=== PATIENT | male | born 1945 | race Caucasian/White ===

== ENCOUNTER → 2018-05-01 | Outpatient (REF) | payer MEDICARE, OTHER ==
[~2018-05-01] MED LIST: ASPIRIN325 MG PO; LIPITOR10 MG PO; LISINOPRIL20 MG PO; LORTAB 1010 MG PO
[2018-05-01 10:14] LABS: HEMATOCRIT 46.3 % (39.0-50.0); HEMOGLOBIN 15.2 g/dl (14.0-18.0); IMMATURE GRANULOCYTES 0.7 % (0.0-5.0); MEAN CELL VOLUME 91.5 fL CALC (80.0-100.0); MEAN CORPUSCULAR HGB CONC 32.8 g/L CALC (32.0-36.0); NEUT# 6.78 thou/uL (1.82-7.42); RED BLOOD COUNT 5.06 mill/uL (4.70-6.10)
[2018-05-01 10:17] LABS: ALBUMIN 4.1 g/dL (3.2-5.0); ALKALINE PHOSPHATASE 96 u/l (38-126); ANION GAP 12 (6-22 (CALC)); BILIRUBIN, TOTAL 0.5 mg/dL (0.0-1.4); BUN 19 mg/dL (8-23); BUN/CREATININE RATIO 19 (12-20 (CALC)); CALCULATED LDLCHOLESTEROL 59 mg/dL (62-129 (CALC)); CARBON DIOXIDE 30 mmol/l (22-30); CHLORIDE 100 mmol/l (95-108); CHOLESTEROL HDL RATIO 3.9 (<4.4 (CALC)); GFR > 60 ML/MIN (>=60 (CALC)); GFR FOR AFR.AMER. > 60 ML/MIN (>=60 (CALC)); HDL CHOLESTEROL 36 mg/dL (>=40); SGOT/AST 19 u/l (19-48); SODIUM 137 mmol/l (137-146); TOTAL CHOLESTEROL 139 mg/dl (0-199); TOTAL PROTEIN 7.1 g/dL (6.3-8.2); TRIGLYCERIDES REFLEX TO dLDL 226 mg/dl (30-149); VLDL CHOLESTROL 45 mg/dl (0-38 (CALC))
[2018-05-01 10:50] LABS: TSH, 3RD GENERATION 1.22 uIU/mL (0.47 - 4.68)
== END | disposition home or self-care (01) ==
LOC: LAB 09:19
PROVIDERS: ATTEND Internal Medicine
DX: E78.2 Mixed hyperlipidemia (principal); E11.9 Type 2 diabetes mellitus without complications; Z79.899 Other long term (current) drug therapy; Z12.5 Encounter for screening for malignant neoplasm of prostate

== ENCOUNTER 2022-02-04 06:34 | Inpatient (IN) | payer MEDICARE, OTHER ==
[2022-02-04] VITALS (37 sets, daily range): BP systolic 138–218; BP diastolic 52–103
[~2022-02-04] VITALS: Ht 182.9 cm; Wt 100.0 kg
--- NOTE | 2022-02-04 06:40 | NUR ---
PT TO ROOM 2 FOR TRIAGE ACCOMPANIED BY .
--- NOTE | 2022-02-04 06:47 | NUR ---
PT TO CT SCAN.
[2022-02-04 07:08] LABS: HEMATOCRIT 41.5 % (39.0-50.0); HEMOGLOBIN 13.6 g/dl (14.0-18.0); IMMATURE GRANULOCYTES 0.3 % (0.0-5.0); MEAN CELL VOLUME 90.8 fL CALC (80.0-100.0); MEAN CORPUSCULAR HGB 29.8 pG CALC (26.0-32.0); MEAN CORPUSCULAR HGB CONC 32.8 g/dL CAL (32.0-36.0); NEUT# 8.35 thou/uL (1.82-7.42); RED BLOOD COUNT 4.57 mill/uL (4.70-6.10); RED CELL DISTRI WIDTH 12.7 % (11.5-15.5)
--- NOTE | 2022-02-04 07:21 | NUR ---
STROKE ALERT ACTIVATED AT 0646. PT TO CT, TELE NEUROLOGIST DR. JARA ASSESSING PT.
[2022-02-04 07:33] LABS: ALBUMIN 4.3 g/dL (3.2-5.0); ALKALINE PHOSPHATASE 115 u/l (38-126); ANION GAP 17 (6-22 (CALC)); BILIRUBIN, TOTAL 0.4 mg/dL (0.0-1.4); BUN 20 mg/dL (8-23); BUN/CREATININE RATIO 23 (12-20 (CALC)); CARBON DIOXIDE 26 mmol/l (22-30); CHLORIDE 97 mmol/l (95-108); CREATININE 0.9 mg/dL (0.7-1.3); GFR FOR AFR.AMER. > 60 ML/MIN (>=60 (CALC)); GFR OTHER RACES > 60 ML/MIN (>=60 (CALC)); POTASSIUM 4.8 mmol/l (3.5-5.1); SGOT/AST 26 u/l (19-48); SODIUM 136 mmol/l (137-146); TOTAL PROTEIN 7.3 g/dL (6.3-8.2)
[2022-02-04 07:45] LABS: PROTHROMBIN TIME 9.6 SECONDS (9.0-12.5)
[2022-02-04 08:08] LABS: URINE BILIRUBIN - DIPSTICK NEGATIVE (NEGATIVE); URINE BLOOD DIPSTICK NEGATIVE (NEGATIVE); URINE COLOR YELLOW; URINE GLUCOSE - DIPSTICK 100 mg/dL (NEGATIVE); URINE KETONE NEGATIVE (NEGATIVE); URINE LEUK ESTERASE NEGATIVE (NEGATIVE); URINE PROTEIN - DIPSTICK NEGATIVE (NEG-TRACE); URINE UROBILINOGEN - DIPSTICK 0.2 E.U./dL (0.2)
[2022-02-04 08:09] LABS: URINE NITRITE - DIPSTICK NEGATIVE (Negative)
--- NOTE | 2022-02-04 08:22 | NUR ---
PT IN ROOM RESTING WITH EYES OPEN. DYSPHAGIA SCREENING DONE AND PT HAD NO DIFFICULTY SWALLOWING. PT USED A URINAL TO URINATE. PT ABLE TO MOVE AND SIT UP WITH NO ISSUES. PT HAS NO COMPLAINT.
--- NOTE | 2022-02-04 08:51 | NUR ---
PT ADMITTED TO ICU 7. BEDSIDE REPORT GIVEN. NAD
--- NOTE | 2022-02-04 09:00 | NUR ---
PT ARRIVES TO ROOM 7 IN ICU, DIAGNOSED CVA. PT IS ALERT, LOOKING AROUND, BUT SLOW TO ANSWER QUESTIONS, MANY INCORRECT. PHYSICALLY HE IS ABLE TO BEAR HIS WEIGHT, MOVE HIS ARMS AND LEGS APPROPRIATELY, TOUCH FINGERS TO NOSE.
[2022-02-04] MEDS ORDERED: METFORMIN500 M2 PO (11:09)
[2022-02-04] MEDS ORDERED: LOPRESSOR25 M1 PO (11:10)
--- NOTE | 2022-02-04 12:37 | NUR ---
PT'S IS AT BEDSIDE, HELPFUL IN ADMISSION QUESTIONS. PT REMAINS SLOW TO SPEAK, IS AWARE OF HIS CHANGE IN STATUS, SEEN FRUSTRATED WHEN HE KNOWS HE IS GIVING WRONG ANSWER.
--- NOTE | 2022-02-04 17:41 | NUR ---
PT CONTINUES WITH DIFFICULTY FINDING WORDS, NOT IMPROVED DURING THE DAY. PT EARLIER REFUSED MRI SAYING THAT IT MADE HIM SICK. PT REQUIRES ASSIST TO USE URINAL, CLUMSY WHEN HE TRIES TO HOLD BOTTLE HIMSELF.
--- NOTE | 2022-02-04 19:47 | NUR ---
PATIENT LAYING IN BED AT THIS TIME. LABORER TAN HOUSE DONE SEE INTERVENTIONS. PATIENT IS ALERT TO NAME PATIENT WHEN ASKED QUESTIONS IS MILDLY APHASIC AND CAN NOT SPEAK IN SENTENCES AT THIS TIME NIH SCORE IS A 3 AND MEND IS A 1 AT THIS TIME NEURO CHECKS DONE AND PATIENT CAN MOVE ALL EXTREMITIES WHEN ASKED AND NO DRIFTS NOTED PATIENT IS CONFUSED WHEN ASKED OF LOCATION. PATIENT GET SLIGHTLY AXNIXOUS DUE TO NOT BEING ABLE TO ARTICULATE WORDS AT THIS TIME. PATIENT CAN FOLLOW COMMANDS WHEN ASKED. PUPILS ARE REACTIVE AND EQUAL AT THIS TIME. LUNG FILEDS ARE CLEAR IN UPPER AND MIDDLE LOBES AND DIMINISHED IN LOWER LOBES. BOWEL SOUNDS ARE PRESENT IN ALL FOUR QUADRANTS AT THIS TIME. WHEN ASKED PATIENT DENIES PAIN. PATIENT REFUSING TO WEAR SCD'S AT THIS TIME. PATIENT IS CURRENTLY IN ISOLATION DUE TO POSITIVE LAB TEST OF COVID AND HAS AIRBORNNE PRECAUTIONS IN PLACE. PATIENT HAS NO SIGNS OF SHORTNESS OF BREATH ANS SPO2 ON ROOM AIR IS 93%. PATIENT FINANCIAL SECRETARY IS READING SINUS RHYTHM AND HR OF 83 WITH OCCASSIONAL PVC NOTED. CURRENTLY BP IS 161/73. SIDERAILS ARE UP CALL LIGHT IS WITHIN REACH WILL CONTINUE TO MONITOR.
--- NOTE | 2022-02-04 20:55 | NUR ---
CALLED DR. SALGADO FOR ORDERS FOR INCREASED BP. ORDERS GIVEN AND SENT TO PHARMACY AT THIS TIME. PATIENT ASSISTED TO STAND AND USE URINAL AT THIS TIME. 200 ML OF URINE NOTED CRESENCIO IN COLOR.
--- NOTE | 2022-02-04 22:00 | NUR ---
PATIENT RESTING IN BED AT THIS TIME. AROUSES EASILY WHEN SPOKEN TO. PATIENT REMAINS ASPHASIC AND CONVENIENCE STORE MANAGER READING AT THIS TIME. SINUS RHYTHM WITH IVCD/1 DEGREE AV BLOCK AND HR OF 75. SIDERAILS REMAIN UP X 2 CALL LIGHT REMAINS WITHIN REACH.
[2022-02-05] VITALS (24 sets, daily range): BP systolic 113–203; BP diastolic 54–84
--- NOTE | 2022-02-05 00:02 | NUR ---
PATIENT LAYING IN BED AT THIS TIME ON LEFT SIDE. WHEN ASKED PATIENT FOLLOWED ALL COMMANDS. NEURO CHECKS REMAIN UNCHANGED AT THIS TIME. PATIENT STILL REMAINS ASPHASIC AND CAN NOT COMPLETE SENTENCES AT THIS TIME. PATIENTS SPEECH IS CLEAR BUT PATIENT CANNOT ARTICULATE WORDS CORRECTLY AND GETS FRUSTRATED AT TIMES. PATIENT GRASPS ARE STRONG AND NO VISUAL OR SENSORY CHANGES NOTED. PHYS ASSISTANT CURRENTLY READING BP IS 171/71 HR IS 82 SPO2 IS 93% ON ROOM AIR AND SINUS RHYTHM WITH 1DEGREE BLOCK NOTED. SIDERAILS ARE UP CALL LIGHT IS WIHTIN REACH WILL CONTINUE TO MONITOR.
--- NOTE | 2022-02-05 02:03 | NUR ---
PATIENT RESTING IN BED AT THIS TIME WITH EYES CLOSED. RESPIRATIONS EASY AND UNLABORED AT THIS TIME. DRAWBENCH OPERATOR SHOWING SR AND 1DEGREE BLOCK AND HR OF 80. BP AT THIS TIME IS 178/66. PATIENT WILL CONTINUE TO BE MONITORED. SIDERAILS ARE UP X 2 CALL LIGHT WIHTIN REACH.
--- NOTE | 2022-02-05 04:08 | NUR ---
PATIENT AWAKEN AT THIS TIME FOR ASSESSMENT. PATIENT ALERT TO NAME, PATIENT NIH REMAINS A 3 AT THIS TIME. PATIETN REMAINS APHASIC AT THIS TIME. SPEECH IS CLEAR PATIENT UNABLE TO ANSWER QUESTIONS CORRECTLY. NEURO CHECKS REMAIN UNCHAGED AT THIS TIME FROM PREVOUS ASSESSMENT. BP AT THIS TIME SIS 155/63 SPO2 IS 91% ON ROOM AIR AND ROVING WINDER IS SINUS WITH 1 DEGREE BLOCK/ IVCD. PATIENT STOOD ON SIDE OF BED X 1 ASSIST AND BED LINEN WAS REMADE AND PATIENT RETURNED BACK TO BED. SIDERAILS ARE UP CALL LIGHT IS WITHIN REACH .
[2022-02-05 05:58] LABS: HEMATOCRIT 38.9 % (39.0-50.0); HEMOGLOBIN 12.7 g/dl (14.0-18.0); MEAN CELL VOLUME 89.4 fL CALC (80.0-100.0); MEAN CORPUSCULAR HGB 29.2 pG CALC (26.0-32.0); MEAN CORPUSCULAR HGB CONC 32.6 g/dL CAL (32.0-36.0); RED BLOOD COUNT 4.35 mill/uL (4.70-6.10); RED CELL DISTRI WIDTH 12.6 % (11.5-15.5)
--- NOTE | 2022-02-05 06:06 | NUR ---
PATIENT AWAKEN TO HAVE LABS DRAWN AT THIS TIME. NIH SCORE REMAINS A "3" AND IS UNCHANGED FROM PREVIOUS SCORES. CARD LACER JACQUARD IS READING SR AT 76 WITH A IVCD/ 1ST DEGREE BLOCK. PATIENTS BP AT THIS TIME IS CURRENTLY 147/56 SPO2 IS 91 ON ROOM AIR. SIDERAILS ARE UP CALL LIGHT IS WITHIN REACH.
[2022-02-05 06:26] LABS: ALKALINE PHOSPHATASE 98 u/l (38-126); ANION GAP 13 (6-22 (CALC)); BILIRUBIN, TOTAL 0.8 mg/dL (0.0-1.4); BUN 22 mg/dL (8-23); BUN/CREATININE RATIO 25 (12-20 (CALC)); CALCULATED LDLCHOLESTEROL 52 mg/dL (62-129 (CALC)); CARBON DIOXIDE 28 mmol/l (22-30); CHLORIDE 98 mmol/l (95-108); CHOLESTEROL HDL RATIO 3.8 (<4.4 (CALC)); CREATININE 0.9 mg/dL (0.7-1.3); GFR FOR AFR.AMER. > 60 ML/MIN (>=60 (CALC)); GFR OTHER RACES > 60 ML/MIN (>=60 (CALC)); HDL CHOLESTEROL 30 mg/dL (>=40); MAGNESIUM 1.8 mg/dL (1.6-2.3); POTASSIUM 4.1 mmol/l (3.5-5.1); SGOT/AST 24 u/l (19-48); SODIUM 135 mmol/l (137-146); TOTAL CHOLESTEROL 115 mg/dl (0-199); TOTAL PROTEIN 6.6 g/dL (6.3-8.2); TOTAL TRIGLYCERIDES 167 mg/dl (30-149); VLDL CHOLESTROL 33 mg/dl (0-38 (CALC))
--- NOTE | 2022-02-05 08:38 | NUR ---
Patient resting comfortably in bed. Arouses to speech, follows commands, expressive aphasia persists. Continuous monitoring in place. VSS. NAD. NIHSS = 2. at bedside at this time. Patient has refused breakfast, but she will attempt to get him to try something.
--- NOTE | 2022-02-05 10:42 | NUR ---
Patient lying in bed. remains in room. Agreeable to MRI with anxiety relief. NAD/VSS.
--- NOTE | 2022-02-05 11:24 | NUR ---
[id number] MELT HOUSE SUPERVISOR USED. Pt questioning medication that she was told was called into the pharmacy. Concerned that she has no one to pick them up. Explained she would recieve the necessary medications here and she wishes to discuss with MD tomorrow. No further concerns at this time. Line discontinued.
--- NOTE | 2022-02-05 12:45 | NUR ---
Preparing to transport patient to MRI. Ambulatory, speaking in full sentences but occasionally has difficulty finding the appropriate word. NIH = 1. Plan to D/C home following MRI results. VSKlaudia. SKY.
--- NOTE | 2022-02-05 14:16 | NUR ---
Patient anxiously awaiting discharge. Informed of plan to wait on results, he is agreeable, as is his . He has dressed himself without assistance and is requesting his IV be removed. NAD. ESCAMILLA.
[2022-02-05] MEDS ORDERED: PLAVIX75 MG PO (15:57)
[2022-02-05] MEDS ORDERED: ATORVASTATIN CA40 MG PO (15:58)
--- NOTE | 2022-02-05 16:15 | NUR ---
Patient discharged home in stable condition. AAO, ambulatory, offers no complaints. Discharge education reviewed and sent home with patient. Medications reviewed and patient states understanding. is driving patient home. Transported to car via wheelchair with all personal belongings.
== END 2022-02-05 16:15 | disposition home or self-care (01) | DRG 64 ==
LOC: ED 06:34 → ED-I 07:58 → ED 08:11 → ICU 08:12
PROVIDERS: Family Medicine; ADMIT Internal Medicine; ATTEND Internal Medicine
DX: I63.9 Cerebral infarction, unspecified (principal); U07.1 COVID-19; I67.4 Hypertensive encephalopathy; R47.01 Aphasia; R41.0 Disorientation, unspecified; R51.9 Headache, unspecified; R29.704 NIHSS score 4; I10 Essential (primary) hypertension; E11.51 Type 2 diabetes mellitus with diabetic peripheral angiopathy without gangrene; E78.5 Hyperlipidemia, unspecified; Z87.891 Personal history of nicotine dependence
CPT/HCPCS: J1650; J2060; Q9967

== ENCOUNTER 2023-10-19 06:36 | Emergency (ER) | payer MEDICARE, OTHER ==
[~2023-10-19] VITALS: Ht 182.9 cm; Wt 85.0 kg
[~2023-10-19 06:36] MED LIST changes: +AMLODIPINE BESY10 MG PO; +ATORVASTATIN CA40 MG PO; +JARDIANCE25 MG PO; +LOPRESSOR25 M1 PO; +METFORMIN500 M2 PO; +PLAVIX75 MG PO
[2023-10-19 06:42] VITALS: BP 135/73
[2023-10-19 07:00] VITALS: BP 144/74
[2023-10-19] MEDS ORDERED: [UNRECOGNIZED DRUG - OTHER] (07:14)
[2023-10-19] MEDS ORDERED: ALBUTEROL SUL0.083 % IN (07:14)
[2023-10-19] MEDS ORDERED: LEVETIRACETAM750 MG PO (07:15)
[2023-10-19] MEDS ORDERED: MULTI VIT PO (07:16)
[2023-10-19] MEDS ORDERED: COQ-1030 M1 PO (07:16)
[2023-10-19] MEDS ORDERED: PROTONIX40 M2 PO (07:17)
[2023-10-19 07:31] VITALS: BP 125/62
[2023-10-19 07:34] VITALS: BP 125/62
== END 2023-10-19 07:40 | disposition home or self-care (01) ==
LOC: ED 06:36
DX: S40.812A Abrasion of left upper arm, initial encounter (principal); T14.8XXA Other injury of unspecified body region, initial encounter; C34.90 Malignant neoplasm of unspecified part of unspecified bronchus or lung; C79.31 Secondary malignant neoplasm of brain; I10 Essential (primary) hypertension; I73.9 Peripheral vascular disease, unspecified; W18.39XA Other fall on same level, initial encounter; Y92.000 Kitchen of unspecified non-institutional (private) residence as the place of occurrence of the external cause; Z95.820 Peripheral vascular angioplasty status with implants and grafts; Z79.60 Long term (current) use of unspecified immunomodulators and immunosuppressants

== ENCOUNTER 2023-10-21 07:32 | Emergency (ER) | payer MEDICARE, OTHER ==
[~2023-10-21] VITALS: Ht 182.9 cm; Wt 86.1 kg
[2023-10-21] VITALS (27 sets, daily range): BP systolic 100–153; BP diastolic 48–86
[~2023-10-21 07:32] MED LIST changes: +ALBUTEROL SUL0.083 % IN; +COQ-1030 M1 PO; +LEVETIRACETAM750 MG PO; +MULTI VIT PO; +PROTONIX40 M2 PO; +[UNRECOGNIZED DRUG - OTHER]
[2023-10-21] MEDS ORDERED: ACETAMINOPHEN 325 MG/TAB PO ONE (08:00)
[2023-10-21] MEDS ORDERED: KETOROLAC TROMETHAMINE 15 MG/ML SDV IV ONE (08:00)
[2023-10-21 08:19] LABS: BASO% 0.1 % (0-3); EOS% 0.2 % (0-8); HEMATOCRIT 40.6 % (39.0-50.0); HEMOGLOBIN 12.7 g/dl (14.0-18.0); IMMATURE GRANULOCYTES 0.5 % (0.0-5.0); LYMPH% 13.4 % (15-41); MEAN CELL VOLUME 88.5 fL CALC (80.0-100.0); MEAN CORPUSCULAR HGB 27.7 pG CALC (26.0-32.0); MEAN CORPUSCULAR HGB CONC 31.3 g/dL CAL (32.0-36.0); MONO% 4.2 % (2-13); NEUT# 9.3 thou/uL (1.82-7.42); NEUT% 81.6 % (42-76); RED BLOOD COUNT 4.59 mill/uL (4.70-6.10); RED CELL DISTRI WIDTH 17.1 % (11.5-15.5)
[2023-10-21 08:37] LABS: ALBUMIN 4.4 g/dL (3.2-5.0); CREATININE 0.7 mg/dL (0.7-1.3); POTASSIUM 4.8 mmol/l (3.5-5.1); TOTAL PROTEIN 7.6 g/dL (6.3-8.2)
[2023-10-21 10:21] LABS: URINE BILIRUBIN - DIPSTICK Negative (NEGATIVE); URINE BLOOD DIPSTICK Negative (NEGATIVE); URINE GLUCOSE - DIPSTICK >=1000 mg/dL (NEGATIVE); URINE KETONE Trace mg/dL (NEGATIVE); URINE LEUK ESTERASE Negative (NEGATIVE); URINE NITRITE - DIPSTICK Negative (Negative); URINE PROTEIN - DIPSTICK 30 mg/dL (NEG-TRACE); URINE SPECIFIC GRAVITY 1.015; URINE UROBILINOGEN - DIPSTICK 0.2 E.U./dL (0.2)
[2023-10-21 10:33] LABS: URINE COLOR Yellow
[2023-10-21 10:34] LABS: URINE EPITHELIAL CELLS FEW EPI/hpf (0-FEW); URINE MUCUS FEW hpf (NONE-FEW)
== END 2023-10-21 14:28 | disposition home or self-care (01) ==
LOC: ED 07:32
PROVIDERS: Family Medicine
DX: R51.9 Headache, unspecified (principal); I10 Essential (primary) hypertension; E11.9 Type 2 diabetes mellitus without complications; C34.90 Malignant neoplasm of unspecified part of unspecified bronchus or lung; C79.31 Secondary malignant neoplasm of brain; I73.9 Peripheral vascular disease, unspecified; Z79.84 Long term (current) use of oral hypoglycemic drugs; Z20.822 Contact with and (suspected) exposure to COVID-19

== ENCOUNTER 2023-10-25 06:30 | Emergency (ER) | payer MEDICARE, OTHER ==
[~2023-10-25] VITALS: Ht 182.9 cm; Wt 86.1 kg
[2023-10-25] VITALS (14 sets, daily range): BP systolic 131–153; BP diastolic 67–91
[2023-10-25] MEDS ORDERED: DEXAMETHASONE SOD. PHOSPHATE 10 MG/ML VIAL IV ONE (06:55)
[2023-10-25] MEDS ORDERED: MANNITOL IV ONE (07:00)
[2023-10-25 07:29] LABS: EOS% 0.1 % (0-8); HEMATOCRIT 43.6 % (39.0-50.0); HEMOGLOBIN 13.7 g/dl (14.0-18.0); IMMATURE GRANULOCYTES 1.4 % (0.0-5.0); LYMPH% 14.7 % (15-41); MEAN CELL VOLUME 87.9 fL CALC (80.0-100.0); MEAN CORPUSCULAR HGB 27.6 pG CALC (26.0-32.0); MEAN CORPUSCULAR HGB CONC 31.4 g/dL CAL (32.0-36.0); MONO% 8.8 % (2-13); NEUT# 6.08 thou/uL (1.82-7.42); RED BLOOD COUNT 4.96 mill/uL (4.70-6.10); RED CELL DISTRI WIDTH 17.1 % (11.5-15.5)
[2023-10-25 07:49] LABS: ALBUMIN 4.1 g/dL (3.2-5.0); BILIRUBIN, TOTAL 1.1 mg/dL (0.2-1.3); CREATININE 0.8 mg/dL (0.7-1.3); POTASSIUM 4.7 mmol/l (3.5-5.1)
[2023-10-25 07:51] LABS: MAGNESIUM 2.3 mg/dL (1.6-2.3)
[2023-10-25 08:03] LABS: ACT PARTIAL THROMBO TIME 24.4 SECONDS (20.0-32.5)
[2023-10-25 08:05] LABS: PROTHROMBIN TIME 9.7 SECONDS (9.0-12.5)
[2023-10-25 10:01] LABS: URINE BLOOD DIPSTICK Negative (NEGATIVE); URINE GLUCOSE - DIPSTICK >=1000 mg/dL (NEGATIVE); URINE KETONE 80 mg/dL (NEGATIVE); URINE LEUK ESTERASE Negative (NEGATIVE); URINE NITRITE - DIPSTICK Negative (Negative); URINE PH 5.5 (4.5-8.0); URINE PROTEIN - DIPSTICK 30 mg/dL (NEG-TRACE); URINE SPECIFIC GRAVITY 1.025; URINE UROBILINOGEN - DIPSTICK 0.2 E.U./dL (0.2)
[2023-10-25 10:02] LABS: URINE COLOR Yellow
[2023-10-25 10:19] LABS: URINE WBC 0-2 WBC/hpf (0-5)
== END 2023-10-25 11:20 | disposition short-term general hospital (02) ==
LOC: ED 06:30
PROVIDERS: Family Medicine
DX: C79.31 Secondary malignant neoplasm of brain (principal); C34.90 Malignant neoplasm of unspecified part of unspecified bronchus or lung; G93.6 Cerebral edema; I10 Essential (primary) hypertension; E11.9 Type 2 diabetes mellitus without complications; I73.9 Peripheral vascular disease, unspecified; Z79.84 Long term (current) use of oral hypoglycemic drugs
CPT/HCPCS: J1953